=== PATIENT | female | born 1995 | race Caucasian/White ===

== ENCOUNTER 2019-06-30 16:52 | Emergency (ER) | payer MEDICAID ==
[~2019-06-30] VITALS: Ht 160 cm; Wt 87.0 kg
[2019-06-30 17:00] VITALS: BP 117/80
--- NOTE | 2019-06-30 17:06 | NUR ---
DC FROM LOBBY BY EB PETIT Addendum: 06/30/19 at 1709 by SHY DC FROM TRIAGE NOT LOBBY
--- NOTE | 2019-06-30 17:09 | NUR ---
PA TO TRIAGE TO EVALUATE THEN DC
== END 2019-06-30 17:23 | disposition home or self-care (01) ==
LOC: ED 17:15
DX: J20.8 Acute bronchitis due to other specified organisms (principal); J02.8 Acute pharyngitis due to other specified organisms; B97.89 Other viral agents as the cause of diseases classified elsewhere
CPT/HCPCS: 99283